=== PATIENT | male | born 1935 ===

== ENCOUNTER 2023-02-05 12:21 | Inpatient (IN) ==
[2023-02-05] MEDS ORDERED: TENECTEPLASE 50 MG VIAL KIT 5 MG/ML (reconstituted) IV ONE ×2 (12:37→12:41)
[2023-02-05] MEDS ORDERED: Iodixanol (CONTRAST) 320 MG/ML 100 ML SDV IV ONE (12:45)
[2023-02-05 13:08] LABS: ABS Basophils 0.1 10^3/uL (0.0-0.1); ABS Eosinophils 0.1 10^3/uL (0.0-0.5); ABS Lymphocytes 1.3 10^3/uL (1.0-4.8); ABS Monocytes 0.7 10^3/uL (0.0-1.1); ABS Neutrophils 8.2 10^3/uL (1.5-7.6); Hematocrit 40.2 % (38-53); Hemoglobin 13.8 g/dL (13.2-16.3); Lymphocyte % 12.8 %; Mean Corpuscular Hemoglobin 31.7 pg (27-33); Mean Corpuscular Hgb Conc 34.2 g/dL (31-36); Mean Corpuscular Volume 92.7 fL (80-97); Mean Platelet Volume 8.7 fL (7.5-11.2); Platelet Count 246 10^3/uL (150-450); Red Blood Count 4.34 10^6/uL (4.06-5.63); Red Cell Distribution Width 13.4 % (12-17); White Blood Count 10.4 10^3/uL (3.6-10.2)
[2023-02-05 13:27] LABS: Albumin 4.1 g/dL (3.2-5.2); Albumin/Globulin Ratio 1.9 (1-3); Calcium 10.3 mg/dL (8.6-10.3); Creatinine, Serum 1.87 mg/dL (0.67-1.17); Globulin 2.2 g/dL (2-4); HDL Cholesterol 42.6 mg/dL; Total Bilirubin 0.4 mg/dL (0.2-1.0); Total Protein 6.3 g/dL (6.4-8.9); eGFR CKD-EPI 34.8 (>60)
[2023-02-05 13:44] LABS: Activated Partial Thrombo Time 32.2 seconds (26.0-38.0); INR 1.03 (0.88-1.18)
[2023-02-05 14:06] LABS: High Sensitivity Troponin 1 Hr 6 pg/mL (<20)
[2023-02-05 18:14] LABS: Urine Appearance Clear; Urine Bilirubin Negative (Negative); Urine Blood Negative (Negative); Urine Color Straw; Urine Glucose Negative (Negative); Urine Ketones Negative (Negative); Urine Nitrite Negative (Negative); Urine Protein Negative (Negative); Urine Specific Gravity 1.011 (1.002-1.030); Urine Urobilinogen Negative (Negative)
[2023-02-05] MEDS: Lactated Ringers 1000 ml BAG 1,000 ML IV SCH (21:08)
[2023-02-06 04:16] LABS: ABS Eosinophils 0.1 10^3/uL (0.0-0.5); ABS Lymphocytes 1.2 10^3/uL (1.0-4.8); ABS Neutrophils 7.1 10^3/uL (1.5-7.6); ABS Nucleated RBC 0.01 10^3/ul; Eosinophil % 1.2 %; Hematocrit 36.8 % (38-53); Hemoglobin 12.7 g/dL (13.2-16.3); Lymphocyte % 12.9 %; Mean Corpuscular Hemoglobin 32.2 pg (27-33); Mean Corpuscular Hgb Conc 34.6 g/dL (31-36); Mean Platelet Volume 8.2 fL (7.5-11.2); Nucleated Red Blood Cells % 0.1 /100 WBC (0.0-0.4); Platelet Count 207 10^3/uL (150-450); Red Blood Count 3.96 10^6/uL (4.06-5.63); Red Cell Distribution Width 13.4 % (12-17); White Blood Count 9.5 10^3/uL (3.6-10.2)
[2023-02-06 04:32] LABS: Calcium 9.6 mg/dL (8.6-10.3); Creatinine, Serum 1.66 mg/dL (0.67-1.17); Magnesium 2.1 mg/dL (1.9-2.7); Potassium 4.1 mmol/L (3.5-5.0); eGFR CKD-EPI 40.1 (>60)
[2023-02-06] MEDS: Lactated Ringers 1000 ml BAG 1,000 ML IV SCH (05:13)
[2023-02-06] MEDS ORDERED: Pantoprazole VIAL 40 MG VIAL IV ONE (14:41)
[2023-02-06 15:41] LABS: ABS Basophils 0.1 10^3/uL (0.0-0.1); ABS Eosinophils 0.2 10^3/uL (0.0-0.5); ABS Lymphocytes 1.2 10^3/uL (1.0-4.8); ABS Monocytes 0.9 10^3/uL (0.0-1.1); ABS Nucleated RBC 0.01 10^3/ul; Eosinophil % 2.1 %; Hematocrit 36.6 % (38-53); Hemoglobin 12.5 g/dL (13.2-16.3); Lymphocyte % 12.8 %; Mean Corpuscular Hemoglobin 32.2 pg (27-33); Mean Corpuscular Hgb Conc 34.2 g/dL (31-36); Mean Corpuscular Volume 94.3 fL (80-97); Mean Platelet Volume 8.4 fL (7.5-11.2); Nucleated Red Blood Cells % 0.1 /100 WBC (0.0-0.4); Platelet Count 219 10^3/uL (150-450); Red Blood Count 3.88 10^6/uL (4.06-5.63); Red Cell Distribution Width 13.6 % (12-17); White Blood Count 9.3 10^3/uL (3.6-10.2)
[2023-02-06 16:18] LABS: Albumin 3.5 g/dL (3.2-5.2); Albumin/Globulin Ratio 1.9 (1-3); Calcium 9.6 mg/dL (8.6-10.3); Creatinine, Serum 1.53 mg/dL (0.67-1.17); Globulin 1.8 g/dL (2-4); Total Bilirubin 0.6 mg/dL (0.2-1.0); Total Protein 5.3 g/dL (6.4-8.9); eGFR CKD-EPI 44.3 (>60)
[2023-02-06 16:40] LABS: INR 1.14 (0.88-1.18)
[2023-02-06] MEDS: Aspirin EC 81 mg TAB.EC (enteric coated) PO SCH (18:06)
[2023-02-06 20:05] LABS: Ferritin 680.6 ng/mL (24-336)
[2023-02-07 05:36] LABS: ABS Basophils 0.1 10^3/uL (0.0-0.1); ABS Eosinophils 0.3 10^3/uL (0.0-0.5); ABS Lymphocytes 1.4 10^3/uL (1.0-4.8); ABS Monocytes 0.9 10^3/uL (0.0-1.1); ABS Neutrophils 7.7 10^3/uL (1.5-7.6); ABS Nucleated RBC 0.01 10^3/ul; Eosinophil % 2.8 %; Hematocrit 39.7 % (38-53); Hemoglobin 13.3 g/dL (13.2-16.3); Lymphocyte % 13.2 %; Mean Corpuscular Hemoglobin 31.8 pg (27-33); Mean Corpuscular Hgb Conc 33.6 g/dL (31-36); Mean Corpuscular Volume 94.6 fL (80-97); Mean Platelet Volume 8.4 fL (7.5-11.2); Nucleated Red Blood Cells % 0.1 /100 WBC (0.0-0.4); Platelet Count 226 10^3/uL (150-450); Red Blood Count 4.19 10^6/uL (4.06-5.63); Red Cell Distribution Width 13.6 % (12-17); White Blood Count 10.4 10^3/uL (3.6-10.2)
[2023-02-07 05:52] LABS: Calcium 10.4 mg/dL (8.6-10.3); Creatinine, Serum 1.7 mg/dL (0.67-1.17); Potassium 4.3 mmol/L (3.5-5.0)
[2023-02-07] MEDS: Aspirin EC 81 mg TAB.EC (enteric coated) PO SCH (08:12)
[2023-02-08 04:45] LABS: ABS Eosinophils 0.1 10^3/uL (0.0-0.5); ABS Lymphocytes 1.2 10^3/uL (1.0-4.8); ABS Monocytes 1.3 10^3/uL (0.0-1.1); ABS Neutrophils 9.2 10^3/uL (1.5-7.6); Eosinophil % 0.8 %; Hemoglobin 13.7 g/dL (13.2-16.3); Lymphocyte % 10.1 %; Mean Corpuscular Hemoglobin 31.5 pg (27-33); Mean Corpuscular Hgb Conc 33.5 g/dL (31-36); Mean Corpuscular Volume 94.1 fL (80-97); Mean Platelet Volume 8.2 fL (7.5-11.2); Platelet Count 214 10^3/uL (150-450); Red Blood Count 4.36 10^6/uL (4.06-5.63); Red Cell Distribution Width 13.7 % (12-17); White Blood Count 11.8 10^3/uL (3.6-10.2)
[2023-02-08 05:12] LABS: Creatinine, Serum 2.02 mg/dL (0.67-1.17); Potassium 4.4 mmol/L (3.5-5.0); eGFR CKD-EPI 31.7 (>60)
[2023-02-08] MEDS: Aspirin EC 81 mg TAB.EC (enteric coated) PO SCH (08:44)
[2023-02-08] MEDS ORDERED: Polyethyl Glycol/Propylene Gly OPHTH.SOLN BOTH EYES PRN (13:40)
[2023-02-09 05:04] LABS: ABS Eosinophils 0.2 10^3/uL (0.0-0.5); ABS Lymphocytes 1.6 10^3/uL (1.0-4.8); ABS Monocytes 0.8 10^3/uL (0.0-1.1); ABS Neutrophils 8.3 10^3/uL (1.5-7.6); ABS Nucleated RBC 0.01 10^3/ul; Eosinophil % 1.8 %; Hematocrit 37.9 % (38-53); Hemoglobin 12.8 g/dL (13.2-16.3); Lymphocyte % 14.5 %; Mean Corpuscular Hemoglobin 31.9 pg (27-33); Mean Corpuscular Hgb Conc 33.8 g/dL (31-36); Mean Corpuscular Volume 94.5 fL (80-97); Mean Platelet Volume 8.6 fL (7.5-11.2); Platelet Count 206 10^3/uL (150-450); Red Blood Count 4.01 10^6/uL (4.06-5.63); Red Cell Distribution Width 13.6 % (12-17)
[2023-02-09 05:19] LABS: Calcium 9.7 mg/dL (8.6-10.3); Creatinine, Serum 2.11 mg/dL (0.67-1.17); Potassium 4.7 mmol/L (3.5-5.0); eGFR CKD-EPI 30.1 (>60)
[2023-02-09] MEDS ORDERED: NS 0.9% 500 ml BAG 500 ML IV ONE (08:13)
[2023-02-09] MEDS: Aspirin EC 81 mg TAB.EC (enteric coated) PO SCH (09:34)
[2023-02-10 04:59] LABS: ABS Eosinophils 0.3 10^3/uL (0.0-0.5); ABS Lymphocytes 1.5 10^3/uL (1.0-4.8); ABS Monocytes 0.7 10^3/uL (0.0-1.1); ABS Neutrophils 6.4 10^3/uL (1.5-7.6); ABS Nucleated RBC 0.01 10^3/ul; Eosinophil % 3.4 %; Hematocrit 38.8 % (38-53); Hemoglobin 13.3 g/dL (13.2-16.3); Lymphocyte % 16.5 %; Mean Corpuscular Hgb Conc 34.3 g/dL (31-36); Mean Corpuscular Volume 93.2 fL (80-97); Mean Platelet Volume 8.8 fL (7.5-11.2); Nucleated Red Blood Cells % 0.1 /100 WBC (0.0-0.4); Platelet Count 197 10^3/uL (150-450); Red Blood Count 4.16 10^6/uL (4.06-5.63); Red Cell Distribution Width 13.4 % (12-17); White Blood Count 8.9 10^3/uL (3.6-10.2)
[2023-02-10 05:18] LABS: Calcium 9.7 mg/dL (8.6-10.3); Creatinine, Serum 1.7 mg/dL (0.67-1.17); Potassium 4.2 mmol/L (3.5-5.0)
[2023-02-10] MEDS ORDERED: NS 0.9% 500 ml BAG 500 ML IV ONE (08:11)
[2023-02-10] MEDS: Aspirin EC 81 mg TAB.EC (enteric coated) PO SCH (09:22)
[2023-02-11 05:40] LABS: ABS Eosinophils 0.3 10^3/uL (0.0-0.5); ABS Lymphocytes 1.1 10^3/uL (1.0-4.8); ABS Monocytes 0.7 10^3/uL (0.0-1.1); ABS Neutrophils 6.9 10^3/uL (1.5-7.6); ABS Nucleated RBC 0.01 10^3/ul; Eosinophil % 3.5 %; Hematocrit 35.4 % (38-53); Hemoglobin 12.3 g/dL (13.2-16.3); Lymphocyte % 11.9 %; Mean Corpuscular Hemoglobin 32.1 pg (27-33); Mean Corpuscular Hgb Conc 34.7 g/dL (31-36); Mean Corpuscular Volume 92.6 fL (80-97); Mean Platelet Volume 8.6 fL (7.5-11.2); Nucleated Red Blood Cells % 0.1 /100 WBC (0.0-0.4); Platelet Count 209 10^3/uL (150-450); Red Blood Count 3.82 10^6/uL (4.06-5.63); Red Cell Distribution Width 13.3 % (12-17)
[2023-02-11 05:55] LABS: Calcium 9.5 mg/dL (8.6-10.3); Creatinine, Serum 1.68 mg/dL (0.67-1.17); Magnesium 2.2 mg/dL (1.9-2.7); Potassium 4.3 mmol/L (3.5-5.0); eGFR CKD-EPI 39.6 (>60)
[2023-02-11] MEDS: Aspirin EC 81 mg TAB.EC (enteric coated) PO SCH (09:14)
[2023-02-11] MEDS: Enoxaparin 40 MG/0.4 ML SYR SUBCUT SCH (15:33)
[2023-02-12 07:00] LABS: Hematocrit 36.2 % (38-53); Hemoglobin 12.1 g/dL (13.2-16.3); Mean Corpuscular Hemoglobin 31.7 pg (27-33); Mean Corpuscular Hgb Conc 33.4 g/dL (31-36); Mean Platelet Volume 8.9 fL (7.5-11.2); Platelet Count 236 10^3/uL (150-450); Red Cell Distribution Width 13.3 % (12-17); White Blood Count 10.5 10^3/uL (3.6-10.2)
[2023-02-12 07:15] LABS: Calcium 9.7 mg/dL (8.6-10.3); Creatinine, Serum 1.62 mg/dL (0.67-1.17); Potassium 4.6 mmol/L (3.5-5.0); eGFR CKD-EPI 41.3 (>60)
[2023-02-12 07:17] LABS: Lithium 1.1 mmol/L (0.6-1.2)
[2023-02-12] MEDS: Aspirin EC 81 mg TAB.EC (enteric coated) PO SCH (09:17)
[2023-02-12 10:01] LABS: TSH Ultra Thyroid Stim Horm 1.01 mcIU/mL (0.34-5.60)
[2023-02-12] MEDS: Enoxaparin 40 MG/0.4 ML SYR SUBCUT SCH (14:11)
[2023-02-12] MEDS ORDERED: Cyanocobalamin INJ 1,000 MCG/ML VIAL 1 ML VIAL IM ONE (15:46)
[2023-02-13 06:32] LABS: ABS Basophils 0.1 10^3/uL (0.0-0.1); ABS Eosinophils 0.3 10^3/uL (0.0-0.5); ABS Lymphocytes 1.2 10^3/uL (1.0-4.8); ABS Monocytes 1.1 10^3/uL (0.0-1.1); ABS Neutrophils 9.5 10^3/uL (1.5-7.6); Eosinophil % 2.5 %; Hematocrit 37.2 % (38-53); Hemoglobin 12.3 g/dL (13.2-16.3); Mean Corpuscular Hemoglobin 31.2 pg (27-33); Mean Corpuscular Volume 94.7 fL (80-97); Mean Platelet Volume 8.9 fL (7.5-11.2); Platelet Count 241 10^3/uL (150-450); Red Blood Count 3.93 10^6/uL (4.06-5.63); Red Cell Distribution Width 13.4 % (12-17); White Blood Count 12.1 10^3/uL (3.6-10.2)
[2023-02-13 06:45] LABS: Calcium 10.2 mg/dL (8.6-10.3); Creatinine, Serum 1.52 mg/dL (0.67-1.17); Potassium 4.5 mmol/L (3.5-5.0); eGFR CKD-EPI 44.6 (>60)
[2023-02-13] MEDS: Aspirin EC 81 mg TAB.EC (enteric coated) PO SCH (08:37)
[2023-02-13] MEDS ORDERED: Cyanocobalamin INJ 1,000 MCG/ML VIAL 1 ML VIAL IM SCH (09:00)
[2023-02-13] MEDS: Enoxaparin 40 MG/0.4 ML SYR SUBCUT SCH (14:47)
[2023-02-13 15:16] VITALS: BP 124/57
== END 2023-02-13 16:26 | DRG 62 ==
LOC: ED 12:21 → EDHOLD 14:18 → SUATTDRO 14:18 → ICU 20:49 → MEDTELE 02-11 08:28
PROVIDERS: ADMIT Internal Medicine Critical Care Medicine; ATTEND Internal Medicine

== ENCOUNTER 2023-02-11 07:00 | Inpatient (IN) ==
[2023-02-13] MEDS ORDERED: Senna TAB 8.6 mg TAB PO PRN (16:59)
[2023-02-13] MEDS ORDERED: Magnesium Hydroxide LIQ 30 ML UDC PO PRN (16:59)
[2023-02-13] MEDS ORDERED: Albuterol HFA INHALER 8 gm MDI INH PRN (19:13)
[2023-02-14 07:31] LABS: ABS Basophils 0.1 10^3/uL (0.0-0.1); ABS Eosinophils 0.1 10^3/uL (0.0-0.5); ABS Lymphocytes 1.2 10^3/uL (1.0-4.8); ABS Monocytes 1.3 10^3/uL (0.0-1.1); ABS Neutrophils 13.4 10^3/uL (1.5-7.6); Eosinophil % 0.8 %; Hemoglobin 11.8 g/dL (13.2-16.3); Lymphocyte % 7.7 %; Mean Corpuscular Hemoglobin 30.8 pg (27-33); Mean Corpuscular Hgb Conc 32.7 g/dL (31-36); Mean Corpuscular Volume 94.3 fL (80-97); Mean Platelet Volume 8.7 fL (7.5-11.2); Platelet Count 264 10^3/uL (150-450); Red Blood Count 3.82 10^6/uL (4.06-5.63); Red Cell Distribution Width 13.5 % (12-17); White Blood Count 16.1 10^3/uL (3.6-10.2)
[2023-02-14 07:40] LABS: Albumin 3.5 g/dL (3.2-5.2); Albumin/Globulin Ratio 1.6 (1-3); Calcium 9.6 mg/dL (8.6-10.3); Creatinine, Serum 1.59 mg/dL (0.67-1.17); Globulin 2.2 g/dL (2-4); Potassium 4.5 mmol/L (3.5-5.0); Total Bilirubin 0.5 mg/dL (0.2-1.0); Total Protein 5.7 g/dL (6.4-8.9); eGFR CKD-EPI 42.3 (>60)
[2023-02-14] MEDS: Aspirin EC 81 mg TAB.EC (enteric coated) PO SCH (09:15)
[2023-02-14] MEDS: SPIRIVA Respimat (tiotropium) 2.5 mcg/inh Inhaler INH SCH (09:15)
[2023-02-14] MEDS: Enoxaparin 40 MG/0.4 ML SYR SUBCUT SCH (14:39)
[2023-02-15 08:42] LABS: ABS Basophils 0.1 10^3/uL (0.0-0.1); ABS Eosinophils 0.3 10^3/uL (0.0-0.5); ABS Lymphocytes 1.1 10^3/uL (1.0-4.8); ABS Monocytes 0.9 10^3/uL (0.0-1.1); ABS Neutrophils 10.5 10^3/uL (1.5-7.6); Eosinophil % 2.6 %; Hematocrit 35.8 % (38-53); Hemoglobin 12.1 g/dL (13.2-16.3); Lymphocyte % 8.7 %; Mean Corpuscular Hemoglobin 31.9 pg (27-33); Mean Corpuscular Hgb Conc 33.7 g/dL (31-36); Mean Corpuscular Volume 94.5 fL (80-97); Mean Platelet Volume 8.3 fL (7.5-11.2); Platelet Count 282 10^3/uL (150-450); Red Blood Count 3.79 10^6/uL (4.06-5.63); Red Cell Distribution Width 13.2 % (12-17); White Blood Count 12.9 10^3/uL (3.6-10.2)
[2023-02-15] MEDS: Aspirin EC 81 mg TAB.EC (enteric coated) PO SCH (08:59)
[2023-02-15] MEDS: SPIRIVA Respimat (tiotropium) 2.5 mcg/inh Inhaler INH SCH (09:07)
[2023-02-15] MEDS: Enoxaparin 40 MG/0.4 ML SYR SUBCUT SCH (15:48)
[2023-02-15] MEDS ORDERED: Polyethylene Glycol 3350 17 GM PACKET PO PRN (17:58)
[2023-02-15] MEDS: Senna TAB 8.6 mg TAB PO SCH (20:19)
[2023-02-16] MEDS: Aspirin EC 81 mg TAB.EC (enteric coated) PO SCH (07:22)
[2023-02-16] MEDS: Dextran 70/Hypromellose Tears Eye Drops 15 ml BTL (for Artificials Tears) LEFT EYE PRN (07:23)
[2023-02-16] MEDS: SPIRIVA Respimat (tiotropium) 2.5 mcg/inh Inhaler INH SCH (07:23)
[2023-02-16] MEDS: Enoxaparin 40 MG/0.4 ML SYR SUBCUT SCH (15:36)
[2023-02-16] MEDS: Senna TAB 8.6 mg TAB PO SCH (20:12)
[2023-02-16] MEDS ORDERED: HYDROcodone/ACETAMIN 5/325 mg TAB PO PRN (23:39)
[2023-02-17] MEDS: Aspirin EC 81 mg TAB.EC (enteric coated) PO SCH (07:40)
[2023-02-17] MEDS: SPIRIVA Respimat (tiotropium) 2.5 mcg/inh Inhaler INH SCH (08:51)
[2023-02-17] MEDS: Enoxaparin 40 MG/0.4 ML SYR SUBCUT SCH (14:58)
[2023-02-17] MEDS: Senna TAB 8.6 mg TAB PO SCH (20:07)
[2023-02-18 06:54] LABS: Hematocrit 34.3 % (38-53); Hemoglobin 11.6 g/dL (13.2-16.3); Mean Corpuscular Hgb Conc 33.8 g/dL (31-36); Mean Corpuscular Volume 94.7 fL (80-97); Mean Platelet Volume 8.1 fL (7.5-11.2); Platelet Count 310 10^3/uL (150-450); Red Blood Count 3.62 10^6/uL (4.06-5.63); Red Cell Distribution Width 13.2 % (12-17); White Blood Count 9.8 10^3/uL (3.6-10.2)
[2023-02-18] MEDS: SPIRIVA Respimat (tiotropium) 2.5 mcg/inh Inhaler INH SCH (07:41)
[2023-02-18] MEDS: Aspirin EC 81 mg TAB.EC (enteric coated) PO SCH (08:06)
[2023-02-18 08:14] LABS: ABS Basophils 0.1 10^3/uL (0.0-0.1); ABS Eosinophils 0.3 10^3/uL (0.0-0.5); ABS Lymphocytes 1.3 10^3/uL (1.0-4.8); ABS Monocytes 0.9 10^3/uL (0.0-1.1); ABS Neutrophils 7.3 10^3/uL (1.5-7.6); Eosinophil % 2.8 %; Lymphocyte % 12.8 %; RBC Morphology Normal (Normal)
[2023-02-18] MEDS: Enoxaparin 40 MG/0.4 ML SYR SUBCUT SCH (15:17)
[2023-02-18] MEDS: Senna TAB 8.6 mg TAB PO SCH (21:24)
[2023-02-19] MEDS: Dextran 70/Hypromellose Tears Eye Drops 15 ml BTL (for Artificials Tears) LEFT EYE PRN (09:12)
[2023-02-19] MEDS: Aspirin EC 81 mg TAB.EC (enteric coated) PO SCH (09:13)
[2023-02-19] MEDS: SPIRIVA Respimat (tiotropium) 2.5 mcg/inh Inhaler INH SCH (09:16)
[2023-02-19] MEDS: Enoxaparin 40 MG/0.4 ML SYR SUBCUT SCH (14:33)
[2023-02-19] MEDS: Al Hydrox/Mg Hydrox/Simet LIQ 30 ML UDC PO PRN (16:34)
[2023-02-19 17:18] LABS: High Sensitivity Troponin 1 Hr 6 pg/mL (<20)
[2023-02-19] MEDS ORDERED: Bismuth Subsalicylate (BTL) 525 MG/30 ML (BULK BTL) PO ONE (21:00)
[2023-02-19] MEDS: Senna TAB 8.6 mg TAB PO SCH (21:08)
[2023-02-20 07:30] LABS: Calcium 9.3 mg/dL (8.6-10.3); Creatinine, Serum 1.85 mg/dL (0.67-1.17); eGFR CKD-EPI 35.3 (>60)
[2023-02-20 07:54] LABS: Potassium 4.8 mmol/L (3.5-5.0)
[2023-02-20] MEDS: SPIRIVA Respimat (tiotropium) 2.5 mcg/inh Inhaler INH SCH (10:11)
[2023-02-20] MEDS: Aspirin EC 81 mg TAB.EC (enteric coated) PO SCH (10:11)
[2023-02-20] MEDS: Enoxaparin 40 MG/0.4 ML SYR SUBCUT SCH (15:41)
[2023-02-20] MEDS: Al Hydrox/Mg Hydrox/Simet LIQ 30 ML UDC PO PRN (18:59)
[2023-02-20] MEDS: Senna TAB 8.6 mg TAB PO SCH (20:24)
[2023-02-21 06:33] LABS: Hematocrit 29.7 % (38-53); Hemoglobin 10.1 g/dL (13.2-16.3); Mean Corpuscular Hemoglobin 31.9 pg (27-33); Mean Corpuscular Hgb Conc 34.2 g/dL (31-36); Mean Corpuscular Volume 93.4 fL (80-97); Mean Platelet Volume 7.5 fL (7.5-11.2); Platelet Count 286 10^3/uL (150-450); Red Blood Count 3.18 10^6/uL (4.06-5.63); Red Cell Distribution Width 13.5 % (12-17); White Blood Count 12.1 10^3/uL (3.6-10.2)
[2023-02-21 06:48] LABS: Albumin 3.3 g/dL (3.2-5.2); Albumin/Globulin Ratio 1.4 (1-3); Creatinine, Serum 1.79 mg/dL (0.67-1.17); Globulin 2.3 g/dL (2-4); Potassium 4.9 mmol/L (3.5-5.0); Total Bilirubin 0.3 mg/dL (0.2-1.0); Total Protein 5.6 g/dL (6.4-8.9); eGFR CKD-EPI 36.7 (>60)
[2023-02-21] MEDS: Aspirin EC 81 mg TAB.EC (enteric coated) PO SCH (07:43)
[2023-02-21] MEDS: Dextran 70/Hypromellose Tears Eye Drops 15 ml BTL (for Artificials Tears) LEFT EYE PRN ×2 (07:47→21:25)
[2023-02-21] MEDS: SPIRIVA Respimat (tiotropium) 2.5 mcg/inh Inhaler INH SCH (07:47)
[2023-02-21 08:23] LABS: ABS Basophils 0.1 10^3/uL (0.0-0.1); ABS Eosinophils 0.3 10^3/uL (0.0-0.5); ABS Lymphocytes 1.8 10^3/uL (1.0-4.8); ABS Monocytes 0.9 10^3/uL (0.0-1.1); ABS Neutrophils 9.1 10^3/uL (1.5-7.6); Eosinophil % 2.4 %; Lymphocyte % 14.8 %
[2023-02-21] MEDS: Enoxaparin 40 MG/0.4 ML SYR SUBCUT SCH (14:59)
[2023-02-21] MEDS: Senna TAB 8.6 mg TAB PO SCH (21:24)
[2023-02-22] MEDS: Aspirin EC 81 mg TAB.EC (enteric coated) PO SCH (07:40)
[2023-02-22] MEDS: Dextran 70/Hypromellose Tears Eye Drops 15 ml BTL (for Artificials Tears) LEFT EYE PRN (07:42)
[2023-02-22] MEDS: SPIRIVA Respimat (tiotropium) 2.5 mcg/inh Inhaler INH SCH (07:43)
[2023-02-22] MEDS: Enoxaparin 40 MG/0.4 ML SYR SUBCUT SCH (15:39)
[2023-02-22] MEDS ORDERED: Bismuth Subsalicylate (BTL) 525 MG/30 ML (BULK BTL) PO PRN (18:27)
[2023-02-22] MEDS: Senna TAB 8.6 mg TAB PO SCH (20:42)
[2023-02-23] MEDS: Aspirin EC 81 mg TAB.EC (enteric coated) PO SCH (07:30)
[2023-02-23] MEDS: Dextran 70/Hypromellose Tears Eye Drops 15 ml BTL (for Artificials Tears) LEFT EYE PRN (07:31)
[2023-02-23] MEDS: SPIRIVA Respimat (tiotropium) 2.5 mcg/inh Inhaler INH SCH (08:09)
[2023-02-23] MEDS ORDERED: Dextran 70/Hypromellose Tears Eye Drops 15 ml BTL (for Artificials Tears) BOTH EYES PRN (09:39)
[2023-02-23] MEDS: Dextran 70/Hypromellose Tears Eye Drops 15 ml BTL (for Artificials Tears) BOTH EYES SCH ×2 (10:19→22:17)
[2023-02-23] MEDS: PAIN RELIEVING RUB (MENTHOL/SALICYLATE) 1 APPLIC TUBE TOPICAL PRN ×3 (10:20→22:18)
[2023-02-23] MEDS: Enoxaparin 40 MG/0.4 ML SYR SUBCUT SCH (15:31)
[2023-02-23] MEDS: Senna TAB 8.6 mg TAB PO SCH (22:18)
[2023-02-24] MEDS: Aspirin EC 81 mg TAB.EC (enteric coated) PO SCH (07:23)
[2023-02-24] MEDS: Dextran 70/Hypromellose Tears Eye Drops 15 ml BTL (for Artificials Tears) BOTH EYES SCH ×2 (07:25→22:29)
[2023-02-24] MEDS: SPIRIVA Respimat (tiotropium) 2.5 mcg/inh Inhaler INH SCH (07:27)
[2023-02-24] MEDS: PAIN RELIEVING RUB (MENTHOL/SALICYLATE) 1 APPLIC TUBE TOPICAL PRN (10:08)
[2023-02-24] MEDS ORDERED: methylPREDNISolone ACETATE 40 mg/ml 1 ml VIAL **not IV INTRAARTIC ONE (10:24)
[2023-02-24] MEDS ORDERED: Lidocaine 1% VIAL 10 MG/ML VIAL 30 ML ONE (10:24)
[2023-02-24 10:49] LABS: ABS Basophils 0.1 10^3/uL (0.0-0.1); ABS Lymphocytes 1.1 10^3/uL (1.0-4.8); ABS Monocytes 1.5 10^3/uL (0.0-1.1); ABS Neutrophils 10.7 10^3/uL (1.5-7.6); ABS Nucleated RBC 0.01 10^3/ul; Eosinophil % 0.3 %; Hemoglobin 11.4 g/dL (13.2-16.3); Lymphocyte % 8.1 %; Mean Corpuscular Hemoglobin 31.7 pg (27-33); Mean Corpuscular Hgb Conc 33.5 g/dL (31-36); Mean Corpuscular Volume 94.8 fL (80-97); Mean Platelet Volume 7.9 fL (7.5-11.2); Nucleated Red Blood Cells % 0.1 /100 WBC (0.0-0.4); Platelet Count 310 10^3/uL (150-450); Red Blood Count 3.58 10^6/uL (4.06-5.63); Red Cell Distribution Width 13.9 % (12-17); White Blood Count 13.4 10^3/uL (3.6-10.2)
[2023-02-24] MEDS: Enoxaparin 40 MG/0.4 ML SYR SUBCUT SCH (15:52)
[2023-02-24 17:17] LABS: Body Fluid WBC 40095 /mcL
[2023-02-24 17:48] LABS: Body Fluid Mono 6 %; Body Fluid Total Cells Counted 200
[2023-02-24 17:49] LABS: Body Fluid Appearance Bloody; Body Fluid Color Red; Body Fluid Source Synovial Fluid
[2023-02-24 19:50] LABS: Urine Appearance Clear; Urine Bilirubin Negative (Negative); Urine Blood Negative (Negative); Urine Color Yellow; Urine Glucose Negative (Negative); Urine Ketones Negative (Negative); Urine Nitrite Negative (Negative); Urine Protein Negative (Negative); Urine Specific Gravity 1.005 (1.002-1.030); Urine Urobilinogen Negative (Negative)
[2023-02-24] MEDS: Senna TAB 8.6 mg TAB PO SCH (22:26)
[2023-02-25 08:57] LABS: ABS Basophils 0.1 10^3/uL (0.0-0.1); ABS Eosinophils 0.1 10^3/uL (0.0-0.5); ABS Lymphocytes 1.6 10^3/uL (1.0-4.8); ABS Monocytes 0.9 10^3/uL (0.0-1.1); ABS Neutrophils 9.7 10^3/uL (1.5-7.6); Eosinophil % 0.9 %; Hematocrit 31.6 % (38-53); Hemoglobin 10.5 g/dL (13.2-16.3); Lymphocyte % 12.9 %; Mean Corpuscular Hemoglobin 31.4 pg (27-33); Mean Corpuscular Hgb Conc 33.2 g/dL (31-36); Mean Corpuscular Volume 94.6 fL (80-97); Mean Platelet Volume 7.9 fL (7.5-11.2); Platelet Count 301 10^3/uL (150-450); Red Blood Count 3.34 10^6/uL (4.06-5.63); Red Cell Distribution Width 13.8 % (12-17); White Blood Count 12.4 10^3/uL (3.6-10.2)
[2023-02-25] MEDS: Aspirin EC 81 mg TAB.EC (enteric coated) PO SCH (08:59)
[2023-02-25] MEDS: Dextran 70/Hypromellose Tears Eye Drops 15 ml BTL (for Artificials Tears) BOTH EYES SCH ×2 (09:01→20:31)
[2023-02-25] MEDS: SPIRIVA Respimat (tiotropium) 2.5 mcg/inh Inhaler INH SCH (09:01)
[2023-02-25] MEDS: PAIN RELIEVING RUB (MENTHOL/SALICYLATE) 1 APPLIC TUBE TOPICAL PRN ×2 (09:03→20:31)
[2023-02-25] MEDS: Enoxaparin 40 MG/0.4 ML SYR SUBCUT SCH (15:58)
[2023-02-25] MEDS: Senna TAB 8.6 mg TAB PO SCH (20:32)
[2023-02-26 04:58] VITALS: BP 120/68
[2023-02-26] MEDS: Dextran 70/Hypromellose Tears Eye Drops 15 ml BTL (for Artificials Tears) BOTH EYES SCH (07:26)
[2023-02-26] MEDS: Aspirin EC 81 mg TAB.EC (enteric coated) PO SCH (07:26)
[2023-02-26] MEDS: SPIRIVA Respimat (tiotropium) 2.5 mcg/inh Inhaler INH SCH (07:27)
[2023-02-26] MEDS: PAIN RELIEVING RUB (MENTHOL/SALICYLATE) 1 APPLIC TUBE TOPICAL PRN (11:29)
[2023-02-28 16:04] LABS: B. burgdorferi PCR Negative (Negative); B. garinii/B. afzellii PCR Negative (Negative); Lyme Disease Source SYNOVIAL FLUID
== END 2023-02-26 11:50 | DRG 65 ==
LOC: PMRU 02-13 16:42
PROVIDERS: ADMIT Physical Medicine & Rehabilitation; ATTEND Physical Medicine & Rehabilitation